=== PATIENT | female | born 1995 | race Two or more races ===

== ENCOUNTER → 2019-11-05 | Outpatient (CLI) | payer OTHER ==
[~2019-11-05] MED LIST: PRENATAL 19 TA1 EACH
== END | disposition home or self-care (01) ==
LOC: PRENATAL 08:00
DX: O26.851 Spotting complicating pregnancy, first trimester (principal); O36.80X1 Pregnancy with inconclusive fetal viability, fetus 1; Z36.82 Encounter for antenatal screening for nuchal translucency

== ENCOUNTER 2019-11-06 06:39 | Emergency (ER) | payer OTHER ==
[~2019-11-06] VITALS: Ht 165.1 cm; Wt 59.0 kg
[2019-11-06] MEDS ORDERED: PRENATAL 19 TA1 EACH (06:52)
== END 2019-11-06 16:05 | disposition home or self-care (01) ==
LOC: ER 06:39
DX: O02.1 Missed abortion (principal)

== ENCOUNTER 2022-04-04 11:45 | Emergency (ER) | payer OTHER ==
[~2022-04-04] VITALS: Ht 165.1 cm; Wt 59.0 kg
== END 2022-04-04 17:54 | disposition home or self-care (01) ==
LOC: ER 11:45
DX: O20.8 Other hemorrhage in early pregnancy (principal); Z3A.01 Less than 8 weeks gestation of pregnancy

== ENCOUNTER 2022-05-18 09:30 | Outpatient (CLI) | payer OTHER | END 2022-05-18 10:41 | disposition home or self-care (01) | LOC: PRENATAL 09:30 | PROVIDERS: ATTEND Obstetrics & Gynecology Maternal & Fetal Medicine | DX: O36.80X0 Pregnancy with inconclusive fetal viability, not applicable or unspecified (principal); Z36.0 Encounter for antenatal screening for chromosomal anomalies; Z3A.13 13 weeks gestation of pregnancy ==

== ENCOUNTER 2022-05-21 13:03 | Emergency (ER) | payer OTHER ==
[~2022-05-21] VITALS: Ht 165.1 cm; Wt 59.0 kg
[2022-05-21] MEDS ORDERED: FOLIC ACID1 MG PO (13:43)
== END 2022-05-21 20:55 | disposition home or self-care (01) ==
LOC: ER 13:03
DX: O26.893 Other specified pregnancy related conditions, third trimester (principal); Z3A.13 13 weeks gestation of pregnancy; K52.89 Other specified noninfective gastroenteritis and colitis; Z20.828 Contact with and (suspected) exposure to other viral communicable diseases

== ENCOUNTER 2022-07-06 12:32 | Outpatient (CLI) | payer OTHER ==
[~2022-07-06 12:32] MED LIST changes: +FOLIC ACID1 MG PO
== END 2022-07-06 14:11 | disposition home or self-care (01) ==
LOC: PRENATAL 12:32
PROVIDERS: ATTEND Obstetrics & Gynecology Maternal & Fetal Medicine
DX: O35.0XX0 Maternal care for (suspected) central nervous system malformation in fetus, not applicable or unspecified (principal); O35.3XX0 Maternal care for (suspected) damage to fetus from viral disease in mother, not applicable or unspecified; Z3A.20 20 weeks gestation of pregnancy

== ENCOUNTER 2022-11-20 13:30 | Inpatient (IN) | payer OTHER ==
[~2022-11-20] VITALS: Ht 165.1 cm; Wt 3.2 kg
[2022-11-27] MEDS ORDERED: VALACYCLOVIR500 MG (08:27)
[2022-11-28] MEDS ORDERED: IBUPROFEN800 MG PO (08:26)
== END 2022-11-28 14:12 | disposition home or self-care (01) | DRG 788 ==
LOC: OB/GYN 11-25 17:37 → LDR 11-25 17:37 → OB/GYN 11-25 21:36 → LDR 11-28 13:30 → OB/GYN 11-28 14:12
PROVIDERS: ADMIT Specialist; ATTEND Specialist
PROC: 10D00Z1 Extraction of Products of Conception, Low, Open Approach (ICD-10-PCS; principal; 2022-11-26)
PROC: 4A1HXCZ Monitoring of Products of Conception, Cardiac Rate, External Approach (ICD-10-PCS; 2022-11-26)
DX: O82 Encounter for cesarean delivery without indication (principal); Z3A.39 39 weeks gestation of pregnancy; Z37.0 Single live birth; Z20.822 Contact with and (suspected) exposure to COVID-19